=== PATIENT | female | born 1980 | race Caucasian/White ===

== ENCOUNTER 2017-11-17 12:44 | Emergency (ER) | payer MEDICAID ==
[~2017-11-17] VITALS: Ht 175.3 cm; Wt 108.9 kg
[~2017-11-17 12:44] MED LIST: ACETAMINOPHEN-1 EAC1 PO; CEPHALEXIN 500500 M3 PO; CLARITIN10 MG PO; DESYREL; FLONASE 0.05%50 MCG NASAL; GABAPENTIN 100100 MG PO; LIDOCAINE VISC100 M1 MM; NORCO 5-325 TA1 EAC1 PO; NORCO 5-325 TA1 EACH PO; PENICILLIN VK500 M1 PO; PHENERGAN 25 MG25 M1 PO; PREDNISONE50 MG PO; PROTONIX 20 MG20 M1 PO; PROVENTIL IH; PROZAC10 MG PO; ROBAXIN 750 MG750 M1 PO; VENTOLIN HFA 1818 GM INH; VENTOLIN HFA INH8 GM IH; ZOLOFT 50 MG TA50 M1 PO
[2017-11-17 13:06] VITALS: BP 134/79
[2017-11-17] MEDS ORDERED: ZANAFLEX2 MG PO (13:08)
[2017-11-17] MEDS ORDERED: ROBAXIN 750 MG750 M1 PO (13:08)
[2017-11-17] MEDS ORDERED: SINGULAIR 10 MG10 M1 PO (13:08)
[2017-11-17] MEDS ORDERED: SYMBICORT80 MCG/4.1 INH (13:09)
[2017-11-17] MEDS ORDERED: NAPROSYN500 MG PO (13:30)
[2017-11-17] MEDS ORDERED: AMOXICILLIN 50500 MG PO (13:30)
[2017-11-17] MEDS ORDERED: TRAMADOL 50 MG50 MG PO (13:30)
== END 2017-11-17 13:36 | disposition home or self-care (01) ==
LOC: M.ERS 12:44
DX: K08.89 Other specified disorders of teeth and supporting structures (principal); M25.511 Pain in right shoulder; J45.909 Unspecified asthma, uncomplicated; F41.9 Anxiety disorder, unspecified; F17.210 Nicotine dependence, cigarettes, uncomplicated; Z88.1 Allergy status to other antibiotic agents; Z91.041 Radiographic dye allergy status; Z88.2 Allergy status to sulfonamides

== ENCOUNTER 2017-11-29 15:39 | Emergency (ER) | payer MEDICAID ==
[~2017-11-29] VITALS: Ht 175.3 cm; Wt 104.3 kg
[~2017-11-29 15:39] MED LIST changes: +AMOXICILLIN 50500 MG PO; +NAPROSYN500 MG PO; +SINGULAIR 10 MG10 M1 PO; +SYMBICORT80 MCG/4.1 INH; +TRAMADOL 50 MG50 MG PO; +ZANAFLEX2 MG PO
[2017-11-29] MEDS ORDERED: IBU800 MG PO (16:30)
[2017-11-29 16:43] VITALS: BP 140/92
== END 2017-11-29 16:52 | disposition home or self-care (01) ==
LOC: M.ERS 15:39
DX: S90.32XA Contusion of left foot, initial encounter (principal); J45.909 Unspecified asthma, uncomplicated; F41.9 Anxiety disorder, unspecified; F17.210 Nicotine dependence, cigarettes, uncomplicated; Z88.1 Allergy status to other antibiotic agents; Z91.041 Radiographic dye allergy status; W10.8XXA Fall (on) (from) other stairs and steps, initial encounter; Y93.89 Activity, other specified; Y92.89 Other specified places as the place of occurrence of the external cause; Y99.8 Other external cause status

== ENCOUNTER 2018-09-26 16:51 | Emergency (ER) | payer MEDICAID ==
[~2018-09-26] VITALS: Ht 175.3 cm; Wt 106.6 kg
[~2018-09-26 16:51] MED LIST changes: +IBU800 MG PO
[2018-09-26] MEDS ORDERED: ACCUNEB SO1.25 MG/1 INH (17:08)
[2018-09-26] MEDS ORDERED: CYMBALTA30 MG PO (17:09)
[2018-09-26] MEDS ORDERED: AMOXICILLIN 50500 MG PO (17:38)
[2018-09-26] MEDS ORDERED: NORCO 5-325 TA1 EACH PO (17:38)
[2018-09-26 17:50] VITALS: BP 123/77
== END 2018-09-26 17:51 | disposition home or self-care (01) ==
LOC: M.ERS 16:51
DX: K02.9 Dental caries, unspecified (principal); J45.909 Unspecified asthma, uncomplicated; F41.9 Anxiety disorder, unspecified; K21.9 Gastro-esophageal reflux disease without esophagitis; F17.210 Nicotine dependence, cigarettes, uncomplicated; Z88.1 Allergy status to other antibiotic agents; Z88.2 Allergy status to sulfonamides; Z91.041 Radiographic dye allergy status

== ENCOUNTER 2018-12-03 17:19 | Emergency (ER) | payer MEDICAID ==
[~2018-12-03] VITALS: Ht 175.3 cm; Wt 102.1 kg
[~2018-12-03 17:19] MED LIST changes: +ACCUNEB SO1.25 MG/1 INH; +CYMBALTA30 MG PO
[2018-12-03] MEDS ORDERED: CLEOCIN HCL150 MG PO (17:48)
[2018-12-03] MEDS ORDERED: ACETAMINOPHEN-1 EAC1 PO (17:48)
[2018-12-03 18:04] VITALS: BP 146/83
== END 2018-12-03 18:04 | disposition home or self-care (01) ==
LOC: M.ERS 17:19
DX: K08.89 Other specified disorders of teeth and supporting structures (principal); R68.84 Jaw pain; J45.909 Unspecified asthma, uncomplicated; F41.9 Anxiety disorder, unspecified; K21.9 Gastro-esophageal reflux disease without esophagitis; F17.210 Nicotine dependence, cigarettes, uncomplicated; Z88.1 Allergy status to other antibiotic agents; Z91.041 Radiographic dye allergy status; Z88.2 Allergy status to sulfonamides

== ENCOUNTER 2019-01-02 17:28 | Emergency (ER) | payer MEDICAID ==
[~2019-01-02] VITALS: Ht 175.3 cm; Wt 104.3 kg
[~2019-01-02 17:28] MED LIST changes: +CLEOCIN HCL150 MG PO
[2019-01-02 19:40] VITALS: BP 121/67
== END 2019-01-02 19:41 | disposition home or self-care (01) ==
LOC: M.ERS 17:28
DX: S93.492A Sprain of other ligament of left ankle, initial encounter (principal); S93.692A Other sprain of left foot, initial encounter; F17.210 Nicotine dependence, cigarettes, uncomplicated; J45.909 Unspecified asthma, uncomplicated; F41.9 Anxiety disorder, unspecified; K21.9 Gastro-esophageal reflux disease without esophagitis; E66.01 Morbid (severe) obesity due to excess calories; Z68.34 Body mass index [BMI] 34.0-34.9, adult; Z88.1 Allergy status to other antibiotic agents; Z91.041 Radiographic dye allergy status; Z88.2 Allergy status to sulfonamides; W10.8XXA Fall (on) (from) other stairs and steps, initial encounter; Y93.89 Activity, other specified; Y92.89 Other specified places as the place of occurrence of the external cause; Y99.8 Other external cause status

== ENCOUNTER 2019-02-28 11:26 | Emergency (ER) | payer MEDICAID ==
[~2019-02-28] VITALS: Ht 175.3 cm; Wt 104.3 kg
[2019-02-28] MEDS ORDERED: NORCO 5-325 TA1 EAC1 PO (11:49)
[2019-02-28] MEDS ORDERED: KEFLEX500 M1 PO (11:49)
[2019-02-28 12:02] VITALS: BP 125/80
== END 2019-02-28 12:03 | disposition home or self-care (01) ==
LOC: M.ERS 11:26
DX: K08.89 Other specified disorders of teeth and supporting structures (principal); F17.210 Nicotine dependence, cigarettes, uncomplicated; J45.909 Unspecified asthma, uncomplicated; F41.9 Anxiety disorder, unspecified; K21.9 Gastro-esophageal reflux disease without esophagitis; E66.01 Morbid (severe) obesity due to excess calories; Z88.1 Allergy status to other antibiotic agents; Z91.041 Radiographic dye allergy status; Z88.2 Allergy status to sulfonamides; Z98.890 Other specified postprocedural states; Z68.34 Body mass index [BMI] 34.0-34.9, adult

== ENCOUNTER 2019-04-01 11:40 | Emergency (ER) | payer MEDICAID ==
[~2019-04-01] VITALS: Ht 175.3 cm; Wt 104.3 kg
[~2019-04-01 11:40] MED LIST changes: +KEFLEX500 M1 PO
[2019-04-01] MEDS ORDERED: MEDROLDOSEPACK PO ×2 (13:31→13:33)
[2019-04-01] MEDS ORDERED: IBUPROFEN 800800 M1 PO ×2 (13:32→13:33)
[2019-04-01 13:37] LABS: INFLUENZA A ANTIGEN Negative (Negative); INFLUENZA B ANTIGEN Negative (Negative)
[2019-04-01 13:46] VITALS: BP 136/86
== END 2019-04-01 13:47 | disposition home or self-care (01) ==
LOC: M.ERS 11:40
PROVIDERS: Nurse Practitioner
DX: J02.9 Acute pharyngitis, unspecified (principal); J06.9 Acute upper respiratory infection, unspecified; F17.210 Nicotine dependence, cigarettes, uncomplicated; J45.909 Unspecified asthma, uncomplicated; K21.9 Gastro-esophageal reflux disease without esophagitis; E66.01 Morbid (severe) obesity due to excess calories; F32.9 Major depressive disorder, single episode, unspecified; F41.9 Anxiety disorder, unspecified; M54.9 Dorsalgia, unspecified; G89.29 Other chronic pain; Z88.1 Allergy status to other antibiotic agents; Z91.041 Radiographic dye allergy status; Z88.2 Allergy status to sulfonamides; Z98.890 Other specified postprocedural states; Z68.34 Body mass index [BMI] 34.0-34.9, adult

== ENCOUNTER 2019-12-08 20:22 | Emergency (ER) | payer MEDICAID ==
[~2019-12-08] VITALS: Ht 175.3 cm; Wt 108.9 kg
[~2019-12-08 20:22] MED LIST changes: +IBUPROFEN 800800 M1 PO; +MEDROLDOSEPACK PO
[2019-12-08 21:01] LABS: URINE BILIRUBIN NEGATIVE (Negative); URINE BLOOD TRACE (Negative); URINE CLARITY CLEAR; URINE COLOR YELLOW; URINE GLUCOSE-RANDOM NEGATIVE (Negative); URINE KETONES NEGATIVE (Negative); URINE LEUKOCYTES-REFLEX 1+ (Negative); URINE NITRITE-REFLEX NEGATIVE (Negative); URINE PROTEIN TRACE (Negative); URINE UROBILINOGEN 0.2 E.U./dl (0.2-1.0)
[2019-12-08 21:08] LABS: SQUAMOUS 0-3 Few /LPF (0-3)
[2019-12-08 21:09] LABS: BACTERIA-REFLEX >30 Many /HPF (None Seen); CASTS None Seen /LPF (None Seen); CRYSTALS None Seen /LPF (None Seen); MUCUS 0-3 Light strn/LPF (None Seen); URINE RBC 3-10 Few /HPF (0-2); URINE WBC-REFLEX >25 Many /HPF (0-5); WBC CLUMPS Moderate (None Seen)
[2019-12-08 21:13] LABS: ABSOLUTE BASOPHILS 0.1 thou/uL (0.0-0.2); ABSOLUTE EOSINOPHILS 0.3 thou/uL (0.0-0.7); ABSOLUTE LYMPHOCYTES 3.7 thou/uL (0.8-5.3); ABSOLUTE MONOCYTES 0.9 thou/uL (0.0-1.2); BASOPHILS 0.4 %; HEMATOCRIT 36.7 % (37.0-47.0); LYMPHOCYTES 21.6 %; MCH 22.6 pg (26.0-34.0); MCHC 32.6 g/dL (28.0-37.0); MCV 69.2 fL (80.0-100.0); MONOCYTES 5.2 %; MPV 8.1 fl. (7.2-11.1); NUCLEATED RBCS 0 /100WBC; PLATELET COUNT* 309 thou/uL (150-400); POLYS 70.8 %; RBC 5.31 mil/uL (4.20-5.00); WBC 16.9 thou/uL (4.0-11.0)
[2019-12-08 21:21] LABS: CALCIUM 8.4 mg/dL (8.5-10.1); POTASSIUM 3.5 mmol/L (3.5-5.1)
[2019-12-08 21:26] LABS: ALBUMIN 3.2 g/dL (3.4-5.0); TOTAL BILIRUBIN 0.3 mg/dL (<0.1-1.0); TOTAL PROTEIN 6.9 g/dL (6.4-8.2)
[2019-12-08] MEDS ORDERED: ZOFRAN ODT4 MG PO (21:41)
[2019-12-08] MEDS ORDERED: HYDROCODON-ACE1 EAC7 PO (21:41)
[2019-12-08] MEDS ORDERED: KEFLEX500 M1 PO (21:41)
[2019-12-08 22:16] VITALS: BP 123/68
[2019-12-08 23:01] LABS: ANISOCYTOSIS 1+; HYPOCHROMASIA 1+; MICROCYTES 1+; OVALOCYTES 1+
[2019-12-08 23:02] LABS: SCHISTOCYTES Occasional
== END 2019-12-08 22:18 | disposition home or self-care (01) ==
LOC: M.ERS 20:22
PROVIDERS: Personal Emergency Response Attendant
DX: N12 Tubulo-interstitial nephritis, not specified as acute or chronic (principal); F17.210 Nicotine dependence, cigarettes, uncomplicated; G89.29 Other chronic pain; R35.0 Frequency of micturition; F32.9 Major depressive disorder, single episode, unspecified; K21.9 Gastro-esophageal reflux disease without esophagitis; J45.909 Unspecified asthma, uncomplicated; E66.01 Morbid (severe) obesity due to excess calories; Z88.1 Allergy status to other antibiotic agents; Z88.2 Allergy status to sulfonamides; Z88.8 Allergy status to other drugs, medicaments and biological substances; Z79.899 Other long term (current) drug therapy; Z68.35 Body mass index [BMI] 35.0-35.9, adult

== ENCOUNTER 2020-04-12 17:08 | Emergency (ER) | payer MEDICAID ==
[~2020-04-12] VITALS: Ht 175.3 cm; Wt 108.9 kg
[~2020-04-12 17:08] MED LIST changes: +HYDROCODON-ACE1 EAC7 PO; +ZOFRAN ODT4 MG PO
[2020-04-12 17:34] LABS: URINE BILIRUBIN NEGATIVE (Negative); URINE BLOOD TRACE (Negative); URINE CLARITY CLEAR; URINE COLOR YELLOW; URINE GLUCOSE-RANDOM NEGATIVE (Negative); URINE KETONES TRACE (Negative); URINE LEUKOCYTES-REFLEX NEGATIVE (Negative); URINE NITRITE-REFLEX NEGATIVE (Negative); URINE PROTEIN NEGATIVE (Negative); URINE SPECIFIC GRAVITY 1.025 (1.005-1.030); URINE UROBILINOGEN 0.2 E.U./dl (0.2-1.0)
[2020-04-12 17:37] LABS: ABSOLUTE BASOPHILS 0.1 thou/uL (0.0-0.2); ABSOLUTE EOSINOPHILS 0.3 thou/uL (0.0-0.7); ABSOLUTE LYMPHOCYTES 2.7 thou/uL (0.8-5.3); ABSOLUTE MONOCYTES 0.6 thou/uL (0.0-1.2); ABSOLUTE NEUTROPHILS 7.5 thou/uL (1.6-8.1); BASOPHILS 0.9 %; EOSINOPHILS 2.7 %; HEMOGLOBIN 12.3 gm/dL (12.0-15.0); LYMPHOCYTES 23.8 %; MCH 22.2 pg (26.0-34.0); MCHC 32.5 g/dL (28.0-37.0); MCV 68.2 fL (80.0-100.0); MONOCYTES 5.5 %; MPV 7.9 fl. (7.2-11.1); NUCLEATED RBCS 0 /100WBC; PLATELET COUNT* 314 thou/uL (150-400); POLYS 67.1 %; RBC 5.57 mil/uL (4.20-5.00); RDW-CV 17.3 % (10.5-14.5); WBC 11.2 thou/uL (4.0-11.0)
[2020-04-12 17:53] LABS: ALBUMIN 3.7 g/dL (3.4-5.0); TOTAL BILIRUBIN 0.4 mg/dL (<0.1-1.0); TOTAL PROTEIN 7.5 g/dL (6.4-8.2)
[2020-04-12] MEDS ORDERED: PHENERGAN 25 MG25 M1 PO (19:18)
[2020-04-12] MEDS ORDERED: NORCO 5-325 TA1 EAC2 PO (19:18)
[2020-04-12] MEDS ORDERED: ZPAK PO (19:19)
[2020-04-12 19:40] VITALS: BP 120/70
== END 2020-04-12 19:41 | disposition home or self-care (01) ==
LOC: M.ERS 17:08
PROVIDERS: Nurse Practitioner Family
DX: K52.9 Noninfective gastroenteritis and colitis, unspecified (principal); K21.9 Gastro-esophageal reflux disease without esophagitis; E66.01 Morbid (severe) obesity due to excess calories; Z68.35 Body mass index [BMI] 35.0-35.9, adult; Z88.2 Allergy status to sulfonamides; Z88.1 Allergy status to other antibiotic agents; Z91.041 Radiographic dye allergy status

== ENCOUNTER 2020-06-02 13:40 | Emergency (ER) | payer MEDICAID ==
[~2020-06-02] VITALS: Ht 175.3 cm; Wt 108.9 kg
[~2020-06-02 13:40] MED LIST changes: +NORCO 5-325 TA1 EAC2 PO; +ZPAK PO
[2020-06-02] MEDS ORDERED: STEROID INHALER (13:53)
[2020-06-02 14:28] LABS: ABSOLUTE BASOPHILS 0.1 thou/uL (0.0-0.2); ABSOLUTE EOSINOPHILS 0.4 thou/uL (0.0-0.7); ABSOLUTE LYMPHOCYTES 1.8 thou/uL (0.8-5.3); ABSOLUTE MONOCYTES 0.8 thou/uL (0.0-1.2); ABSOLUTE NEUTROPHILS 9.1 thou/uL (1.6-8.1); BASOPHILS 0.6 %; EOSINOPHILS 3.4 %; HEMATOCRIT 36.5 % (37.0-47.0); HEMOGLOBIN 11.6 gm/dL (12.0-15.0); LYMPHOCYTES 14.8 %; MCH 21.3 pg (26.0-34.0); MCHC 31.7 g/dL (28.0-37.0); MCV 67.1 fL (80.0-100.0); MONOCYTES 6.4 %; MPV 8.4 fl. (7.2-11.1); NUCLEATED RBCS 0 /100WBC; PLATELET COUNT* 325 thou/uL (150-400); POLYS 74.8 %; RBC 5.44 mil/uL (4.20-5.00); RDW-CV 18.8 % (10.5-14.5); WBC 12.1 thou/uL (4.0-11.0)
[2020-06-02 14:38] LABS: CALCIUM 8.2 mg/dL (8.5-10.1); POTASSIUM 4.1 mmol/L (3.5-5.1)
[2020-06-02 14:41] LABS: ALBUMIN 3.4 g/dL (3.4-5.0)
[2020-06-02 14:44] LABS: INFLUENZA A ANTIGEN Negative (Negative); INFLUENZA B ANTIGEN Negative (Negative)
[2020-06-02 14:59] LABS: PLATELET ESTIMATE ADEQUATE
[2020-06-02 15:00] LABS: ANISOCYTOSIS 2+; MICROCYTES 2+; POIKILOCYTOSIS 1+
[2020-06-02 15:33] LABS: TOTAL BILIRUBIN 0.4 mg/dL (<0.1-1.0)
[2020-06-02] MEDS ORDERED: DOXYCYCLINE 10100 MG PO (15:52)
[2020-06-02] MEDS ORDERED: PREDNISONE 20 M20 MG PO (15:52)
[2020-06-02 16:10] VITALS: BP 120/70
--- NOTE | 2020-06-02 18:11 | EKG ---
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
== END 2020-06-02 16:11 | disposition home or self-care (01) ==
LOC: M.ERS 13:40
PROVIDERS: Physician Assistant
DX: J45.901 Unspecified asthma with (acute) exacerbation (principal); J22 Unspecified acute lower respiratory infection; K21.9 Gastro-esophageal reflux disease without esophagitis; E66.01 Morbid (severe) obesity due to excess calories; G89.29 Other chronic pain; F17.210 Nicotine dependence, cigarettes, uncomplicated; Z88.1 Allergy status to other antibiotic agents; Z91.041 Radiographic dye allergy status; Z68.35 Body mass index [BMI] 35.0-35.9, adult; Z87.01 Personal history of pneumonia (recurrent); Z88.2 Allergy status to sulfonamides

== ENCOUNTER 2020-07-05 17:13 | Emergency (ER) | payer MEDICAID ==
[~2020-07-05] VITALS: Ht 175.3 cm; Wt 108.9 kg
[~2020-07-05 17:13] MED LIST changes: +DOXYCYCLINE 10100 MG PO; +PREDNISONE 20 M20 MG PO; +STEROID INHALER
[2020-07-05] MEDS ORDERED: FLOVENT DISKUS50 MCG (17:27)
[2020-07-05] MEDS ORDERED: PROAIR HFA8.5 GM INH (17:27)
[2020-07-05] MEDS ORDERED: FLONASE 0.05%50 MCG NARES (17:27)
[2020-07-05 18:00] LABS: ABSOLUTE BASOPHILS 0.1 thou/uL (0.0-0.2); ABSOLUTE EOSINOPHILS 0.2 thou/uL (0.0-0.7); ABSOLUTE LYMPHOCYTES 2.7 thou/uL (0.8-5.3); ABSOLUTE MONOCYTES 0.8 thou/uL (0.0-1.2); ABSOLUTE NEUTROPHILS 7.9 thou/uL (1.6-8.1); BASOPHILS 0.8 %; EOSINOPHILS 2.1 %; HEMATOCRIT 35.9 % (37.0-47.0); HEMOGLOBIN 11.3 gm/dL (12.0-15.0); LYMPHOCYTES 23.1 %; MCH 20.9 pg (26.0-34.0); MCHC 31.6 g/dL (28.0-37.0); MCV 66.1 fL (80.0-100.0); MONOCYTES 6.8 %; MPV 7.8 fl. (7.2-11.1); NUCLEATED RBCS 0 /100WBC; PLATELET COUNT* 337 thou/uL (150-400); POLYS 67.2 %; RBC 5.43 mil/uL (4.20-5.00); RDW-CV 18.6 % (10.5-14.5); WBC 11.7 thou/uL (4.0-11.0)
[2020-07-05 18:09] LABS: CALCIUM 8.9 mg/dL (8.5-10.1)
[2020-07-05 18:13] LABS: ALBUMIN 3.3 g/dL (3.4-5.0); TOTAL BILIRUBIN 0.2 mg/dL (<0.1-1.0); TOTAL PROTEIN 6.8 g/dL (6.4-8.2)
[2020-07-05 18:15] LABS: URINE BILIRUBIN NEGATIVE (Negative); URINE BLOOD NEGATIVE (Negative); URINE CLARITY CLEAR; URINE COLOR YELLOW; URINE GLUCOSE-RANDOM NEGATIVE (Negative); URINE KETONES NEGATIVE (Negative); URINE LEUKOCYTES-REFLEX NEGATIVE (Negative); URINE NITRITE-REFLEX NEGATIVE (Negative); URINE PROTEIN NEGATIVE (Negative); URINE SPECIFIC GRAVITY 1.025 (1.005-1.030); URINE UROBILINOGEN 0.2 E.U./dl (0.2-1.0)
[2020-07-05] MEDS ORDERED: HYDROCODON-ACE1 EAC7 PO (18:30)
[2020-07-05] MEDS ORDERED: IBUPROFEN 800800 M1 PO (18:30)
[2020-07-05] MEDS ORDERED: ONDANSETRON HCL4 M2 PO (18:30)
[2020-07-05] MEDS ORDERED: DOXYCYCLINE 10100 MG PO (18:30)
[2020-07-05 18:56] LABS: ANISOCYTOSIS 2+; HYPOCHROMASIA 3+; MICROCYTES 3+; PLATELET ESTIMATE ADEQUATE
[2020-07-05 19:07] VITALS: BP 165/60
== END 2020-07-05 19:09 | disposition home or self-care (01) ==
LOC: M.ERS 17:13
PROVIDERS: Nurse Practitioner Family
DX: L02.412 Cutaneous abscess of left axilla (principal); R10.84 Generalized abdominal pain; J45.909 Unspecified asthma, uncomplicated; K21.9 Gastro-esophageal reflux disease without esophagitis; G89.29 Other chronic pain; E66.01 Morbid (severe) obesity due to excess calories; F17.210 Nicotine dependence, cigarettes, uncomplicated; Z88.1 Allergy status to other antibiotic agents; Z91.041 Radiographic dye allergy status; Z88.2 Allergy status to sulfonamides; Z87.01 Personal history of pneumonia (recurrent); Z68.35 Body mass index [BMI] 35.0-35.9, adult

== ENCOUNTER 2020-10-16 22:03 | Emergency (ER) | payer MEDICAID ==
[~2020-10-16] VITALS: Ht 175.3 cm; Wt 108.9 kg
[~2020-10-16 22:03] MED LIST changes: +FLONASE 0.05%50 MCG NARES; +FLOVENT DISKUS50 MCG; +ONDANSETRON HCL4 M2 PO; +PROAIR HFA8.5 GM INH
[2020-10-16] MEDS ORDERED: CLARITIN10 MG PO (22:19)
[2020-10-16] MEDS ORDERED: SYMBICORT160 MCG/4. INH (22:19)
[2020-10-16] MEDS ORDERED: LYRICA25 MG PO (22:20)
[2020-10-16] MEDS ORDERED: PREDNISONE50 MG PO (23:12)
[2020-10-16] MEDS ORDERED: PROAIR HFA8.5 GM INH (23:12)
[2020-10-16 23:20] VITALS: BP 121/73
== END 2020-10-16 23:20 | disposition home or self-care (01) ==
LOC: M.ERS 22:03
DX: J45.909 Unspecified asthma, uncomplicated (principal); Z20.822 Contact with and (suspected) exposure to COVID-19; K21.9 Gastro-esophageal reflux disease without esophagitis; F17.210 Nicotine dependence, cigarettes, uncomplicated; Z88.2 Allergy status to sulfonamides; Z91.041 Radiographic dye allergy status; Z88.1 Allergy status to other antibiotic agents; Z87.01 Personal history of pneumonia (recurrent); E66.01 Morbid (severe) obesity due to excess calories; Z68.35 Body mass index [BMI] 35.0-35.9, adult

== ENCOUNTER 2021-02-16 15:37 | Emergency (ER) | payer MEDICAID ==
[~2021-02-16] VITALS: Ht 175.3 cm; Wt 104.3 kg
[~2021-02-16 15:37] MED LIST changes: +LYRICA25 MG PO; +SYMBICORT160 MCG/4. INH
[2021-02-16] MEDS ORDERED: DIPHENHIST50 MG PO (16:45)
[2021-02-16 17:06] VITALS: BP 133/80
== END 2021-02-16 17:07 | disposition home or self-care (01) ==
LOC: M.ERS 15:37
DX: S40.261A Insect bite (nonvenomous) of right shoulder, initial encounter (principal); J45.909 Unspecified asthma, uncomplicated; K21.9 Gastro-esophageal reflux disease without esophagitis; E66.01 Morbid (severe) obesity due to excess calories; F32.9 Major depressive disorder, single episode, unspecified; F41.9 Anxiety disorder, unspecified; F17.210 Nicotine dependence, cigarettes, uncomplicated; Z79.899 Other long term (current) drug therapy; Z88.1 Allergy status to other antibiotic agents; Z88.6 Allergy status to analgesic agent; W57.XXXA Bitten or stung by nonvenomous insect and other nonvenomous arthropods, initial encounter; Y93.89 Activity, other specified; Y92.89 Other specified places as the place of occurrence of the external cause; Y99.8 Other external cause status

== ENCOUNTER 2021-06-14 19:57 | Emergency (ER) | payer MEDICAID ==
[~2021-06-14] VITALS: Ht 175.3 cm; Wt 102.1 kg
[~2021-06-14 19:57] MED LIST changes: +DIPHENHIST50 MG PO
[2021-06-14] MEDS ORDERED: FLOVENT HFA12 G1 INH (20:13)
[2021-06-14] MEDS ORDERED: PROZAC20 MG PO (20:13)
[2021-06-14 20:46] LABS: INFLUENZA A ANTIGEN Negative (Negative); INFLUENZA B ANTIGEN Negative (Negative)
[2021-06-14] MEDS ORDERED: ZPAK PO (21:15)
[2021-06-14] MEDS ORDERED: MEDROLDOSEPACK PO (21:15)
[2021-06-14] MEDS ORDERED: APAP W/CODEINE1 TA2 PO (21:15)
[2021-06-14] MEDS ORDERED: SYMBICORT160 MCG/4. INH (21:16)
[2021-06-14] MEDS ORDERED: SINGULAIR 10 MG10 M1 PO (21:27)
[2021-06-14 21:29] VITALS: BP 162/91
== END 2021-06-14 21:29 | disposition home or self-care (01) ==
LOC: M.ERS 19:57
PROVIDERS: Nurse Practitioner Psychiatric/Mental Health
DX: J18.9 Pneumonia, unspecified organism (principal); Z20.822 Contact with and (suspected) exposure to COVID-19; J45.909 Unspecified asthma, uncomplicated; H92.09 Otalgia, unspecified ear; K21.9 Gastro-esophageal reflux disease without esophagitis; E66.01 Morbid (severe) obesity due to excess calories; F32.9 Major depressive disorder, single episode, unspecified; F41.9 Anxiety disorder, unspecified; F17.210 Nicotine dependence, cigarettes, uncomplicated; Z88.1 Allergy status to other antibiotic agents; Z88.2 Allergy status to sulfonamides; Z91.041 Radiographic dye allergy status; Z79.899 Other long term (current) drug therapy

== ENCOUNTER 2021-07-03 17:15 | Emergency (ER) | payer MEDICAID ==
[~2021-07-03] VITALS: Ht 175.3 cm; Wt 102.1 kg
[~2021-07-03 17:15] MED LIST changes: +APAP W/CODEINE1 TA2 PO; +FLOVENT HFA12 G1 INH; +PROZAC20 MG PO
[2021-07-03 19:36] LABS: URINE BILIRUBIN NEGATIVE (Negative); URINE BLOOD NEGATIVE (Negative); URINE CLARITY CLEAR; URINE COLOR DARK YELLOW; URINE GLUCOSE-RANDOM NEGATIVE (Negative); URINE KETONES NEGATIVE (Negative); URINE LEUKOCYTES-REFLEX NEGATIVE (Negative); URINE NITRITE-REFLEX NEGATIVE (Negative); URINE PROTEIN TRACE (Negative); URINE UROBILINOGEN 0.2 E.U./dl (0.2-1.0)
[2021-07-03 19:58] LABS: CALCIUM 8.7 mg/dL (8.5-10.1); POTASSIUM 3.9 mmol/L (3.5-5.1)
[2021-07-03 20:03] LABS: ABSOLUTE BASOPHILS 0.1 thou/uL (0.0-0.2); ABSOLUTE EOSINOPHILS 0.2 thou/uL (0.0-0.7); ABSOLUTE LYMPHOCYTES 2.7 thou/uL (0.8-5.3); ABSOLUTE MONOCYTES 0.6 thou/uL (0.0-1.2); ABSOLUTE NEUTROPHILS 4.5 thou/uL (1.6-8.1); ALBUMIN 3.5 g/dL (3.4-5.0); BASOPHILS 1.4 %; HEMATOCRIT 38.5 % (37.0-47.0); HEMOGLOBIN 12.7 gm/dL (12.0-15.0); LYMPHOCYTES 33.6 %; MCH 20.9 pg (26.0-34.0); MCHC 32.9 g/dL (28.0-37.0); MCV 63.4 fL (80.0-100.0); MONOCYTES 7.4 %; MPV 8.5 fl. (7.2-11.1); NUCLEATED RBCS 0 /100WBC; PLATELET COUNT* 225 thou/uL (150-400); POLYS 55.6 %; RBC 6.07 mil/uL (4.20-5.00); RDW-CV 19.3 % (10.5-14.5); TOTAL BILIRUBIN 0.4 mg/dL (<0.1-1.0); TOTAL PROTEIN 7.6 g/dL (6.4-8.2)
[2021-07-03 20:54] LABS: ANISOCYTOSIS Occasional; PLATELET ESTIMATE ADEQUATE
[2021-07-03 20:55] LABS: HYPOCHROMASIA 1+; MICROCYTES 2+
[2021-07-03 20:56] LABS: INFLUENZA A ANTIGEN Negative (Negative); INFLUENZA B ANTIGEN Negative (Negative); LARGE PLATELETS OCCASIONAL
[2021-07-03] MEDS ORDERED: ZOFRAN ODT4 MG PO (21:19)
[2021-07-03] MEDS ORDERED: DICYCLOMINE HCL20 MG PO (21:19)
[2021-07-03 21:45] VITALS: BP 110/58
--- NOTE | 2021-07-04 11:03 | EKG ---
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
== END 2021-07-03 21:46 | disposition home or self-care (01) ==
LOC: M.ERS 17:15
PROVIDERS: Nurse Practitioner Family
DX: U07.1 COVID-19 (principal); R11.2 Nausea with vomiting, unspecified; R19.7 Diarrhea, unspecified; J45.909 Unspecified asthma, uncomplicated; K21.9 Gastro-esophageal reflux disease without esophagitis; E66.01 Morbid (severe) obesity due to excess calories; F32.9 Major depressive disorder, single episode, unspecified; F41.9 Anxiety disorder, unspecified; F17.210 Nicotine dependence, cigarettes, uncomplicated; Z90.89 Acquired absence of other organs; Z79.51 Long term (current) use of inhaled steroids; Z79.899 Other long term (current) drug therapy; Z88.1 Allergy status to other antibiotic agents; Z88.2 Allergy status to sulfonamides; Z91.041 Radiographic dye allergy status